=== PATIENT | female | born 1990 | race Caucasian/White ===

== ENCOUNTER 2019-01-18 09:41 | Day surgery (SDC) | payer OTHER, SELFPAY ==
[2019-01-18] VITALS (8 sets, daily range): BP systolic 111–121; BP diastolic 67–78; PULSE 53–89; RESP 11–19; TEMP 36.3–36.7; O2SAT 97–100; BMI 28.9
--- NOTE | 2019-01-18 | PATH_ITS ---
[facility] Accession Number: [id number] . 01 Material submitted: . gallbladder - GALLBLADDER WITH CONTENTS . 02 Diagnosis: Gallbladder with Contents, Cholecystectomy: Cholelithiasis with mild chronic cholecystitis. No evidence of neoplasm. MRV 01/20/2019 1119 Local . 02 Electronically signed: . Carlos Ackerman MD, PhD, Pathologist NPI- [id number] . 01 Gross description: . Received in formalin, labeled gallbladder / contents, is an intact gallbladder (length-6.2 cm, diameter-2.5 cm) with baeza-green smooth shiny serosa and a patent cystic duct. A perforation (0.6 x 0.2 cm) is identified within the fundus. One lymph node (1.5 x 0.5 x 0.4 cm) is identified. The lumen contains green gelatinous bile and multiple yellow friable calculi (3.0 x 1.0 x 0.3 cm in aggregate). The mucosa is green-yellow and rough. The wall is up to 0.1 cm thick. No nodules, masses or lesions are identified. Section code: (A1) cystic duct resection margin and two serial sections from the body; (A2) two longitudinal sections from the fundus; (A3) one bisected lymph node. ([id number]) /MRV 01/19/2019 1223 Local . 02 Pathologist provided ICD-10: K80.60 . 02 CPT . 389986 Performed at: 01 [facility] [address] [facility], [place], [place] [id number] MD Sergio Graham MD Phone: [phone] Performed at: 02 [facility] [place] [id number] [address], [place] [id number] MD Berenice Balderrama MD Phone: [phone]
[2019-01-18] MEDS: LACTATED RINGERS 1,000 ML 100 ML IV (10:36)
--- NOTE | 2019-01-18 11:10 | PM.PREOP ---
Pre-operative Note Interval Note History & Physical reviewed/Exam performed by Physician: Yes Changes to H&P: No
[2019-01-18] MEDS: CEFAZOLIN 2 GM/100 ML FROZ.PIGGY IV (11:43)
--- NOTE | 2019-01-18 12:10 | SUR.OPER ---
Supine on padded OR bed, head on pillow, safety belt at thigh, left arm padded and tucked at side. Right arm secured on padded arm board <90 degrees abduction. Legs uncrossed. Padded footboard in place. Tape over blanket to secure lower legs.
[2019-01-18] MEDS: BUPIVACAINE 0.25% (PF) VIAL 30 ML INJ (12:21)
--- NOTE | 2019-01-18 12:43 | SUR.PHASEI ---
Report given to Rai WIGGINS for further care in PACU, oral airway just now removed
--- NOTE | 2019-01-18 12:51 | SUR.PHASEI ---
Patient reported upper chest and shoulder pain. Dr. Boyle notified, no new orders.
[2019-01-18] MEDS: fentaNYL 100 MCG/2 ML INJ 50 MCG IV (12:54)
[2019-01-18] MEDS: KETOROLAC 30 MG/ML VIAL IV (12:54)
--- NOTE | 2019-01-18 13:04 | SUR.PHASEI ---
Patient reported shoulder pain resolved. Abd pain improved to 2/10.
--- NOTE | 2019-01-18 13:14 | SUR.PHASEI ---
Encouraged po pain medication, patient declined
--- NOTE | 2019-01-18 13:22 | SUR.PHASEI ---
Dr. Boyle notified patient's heart rate 49-60 post op. MD conferring with Dr. Hebert. Waiting for orders.
--- NOTE | 2019-01-18 13:31 | SUR.PHASEI ---
Patient may discharge per Dr. Aviles with HR from 49-60s. Patient denied feeling lightheaded, dizzy or nauseated.
--- NOTE | 2019-01-18 18:17 | PM.OP.1 ---
Operative Date/Time/Diagnoses Date of procedure: 01/18/19 Time of procedure: 18:17 Pre-op diagnosis: Biliary colic Post-op diagnosis: same Procedure & Clinicians Procedure: Laparoscopic cholecystectomy Same procedure as scheduled: Yes Indications: 28-year-old female with biliary colic and ultrasound demonstrating gallstones presents for elective cholecystectomy Surgeon: Jason Boyle Anesthesia Type: General Operative Notes Findings: Clips on cystic duct and cystic artery in good position Specimen(s): other (Gallbladder) Estimated Blood Loss (mL): 10 Procedure in detail: The patient was brought to the operating room placed supine on the table. Bilateral lower extremity compression devices were applied. General anesthesia was induced and they were intubated with an endotracheal tube. They received 3.75 g of Zosyn prior to skin incision. A time-out was performed to ensure the correct patient procedure necessary equipment within the operating room. They were then prepped and draped in the usual sterile fashion. Infraumbilical incision was made the umbilical stalk was grasped and elevated and the fascia was sharply incised. The abdomen was entered atraumatically. A 10 mm trocar was then placed into the abdomen. Pneumoperitoneum was established. The laparoscopic camera was inserted into the abdomen inspection was made that demonstrated no evidence of injury upon entry. We then placed our working ports the 1st 5 mm port high in the epigastrium and then 2 in the right upper quadrant. The gallbladder was grasped and retracted over the liver and grasped laterally by the fundus. The triangle of Calot was exposed. The triangle of calot was then skeletonized using hook electrocautery and demonstrated the cystic duct clearly entering the gallbladder the cystic artery and the liver and in the background. With the critical view of safety established the cystic duct was clipped twice proximally and once distally and then sharply divided and the cystic artery was taken in the same fashion. Next the gallbladder was removed from the liver bed using electro cautery. The liver bed was then inspected for hemostasis and this was achieved. The abdomen was irrigated with sterile saline and inspection was made that showed the clips in good position. The specimen was removed using Endo-Catch. The abdomen was desufflated. The the fascia of the umbilicus was closed with 0 Vicryl in a fryzrw-gl-ksooe fashion. Skin incisions were irrigated and closed with 4-0 Monocryl. The wounds were sealed with Dermabond. Patient emerged from general anesthesia was extubated and transferred to the postoperative care unit missed stable condition. The sponge and instrument count at the end of the operation was correct. Complications: none Post-operative Disposition: same day surgery
== END 2019-01-18 14:01 | disposition home or self-care (01) ==
PROVIDERS: PCP Family Medicine; Visit Provider Surgery
PROC: 0FT44ZZ Resection of Gallbladder, Percutaneous Endoscopic Approach (ICD-10-PCS; CPT 47562; principal; 2019-01-18 11:15)
DX: K80.10 Calculus of gallbladder with chronic cholecystitis without obstruction (principal)
CPT/HCPCS: 47562; J0690; J1100; J1885; J2405; J2704; J3010

== ENCOUNTER → 2023-10-22 12:40 | Outpatient (CLI) | payer OTHER, SELFPAY ==
[2023-10-22 13:18] LABS: Add Manual Diff / Slide Review NO; Basophils Absolute Auto 0 /uL (0-100); Basophils Percent Auto 0.2 % (0-2); Eosinophils Absolute Auto 100 /uL (0-450); Eosinophils Percent Auto 0.4 % (2-4); Hematocrit 39.9 % (36-46); Hemoglobin 13.8 g/dL (12.0-16.0); Lymphocytes Absolute Auto 2600 /uL (1100-4500); Lymphocytes Percent Auto 19.2 % (25-40); Mean Corpuscular HGB Conc 34.5 % (30-36); Mean Corpuscular Hemoglobin 31.5 PG (26-34); Mean Corpuscular Volume 91.3 fL (80-100); Monocytes Absolute Auto 800 /uL (0-900); Monocytes Percent Auto 6.1 % (3-14); Neutrophils Absolute Auto 9900 /uL (1500-7000); Neutrophils Percent Auto 74.1 % (50-75); Platelet Count 240 X10^3/uL (150-400); Red Blood Cell Count 4.37 X10^6/uL (4.0-5.2); Red Cell Distribution Width 12.9 % (11.6-14.8); White Blood Cell Count 13.4 X10^3/uL (4.5-11.0)
[2023-10-22 13:32] LABS: Appearance Urine UA CLEAR; Bilirubin Urine UA NEGATIVE (NEGATIVE); Color Urine UA YELLOW; Glucose Urine UA NEGATIVE (Negative); Ketones Urine UA NEGATIVE (NEGATIVE); Leukocyte Esterase Urine UA NEGATIVE (NEGATIVE); Nitrite Urine UA NEGATIVE (Negative); Occult Blood Urine UA NEGATIVE (Negative); Protein Urine UA NEGATIVE (Negative); Urobilinogen Urine UA 0.2 E.U./dL (0.2)
[2023-10-23 01:55] LABS: HIV 1 & 2 Ab/Ag 4th Gen Combo NEGATIVE (NEGATIVE); Hep C Virus Ab w/Reflex Quant NEGATIVE s/c (NEGATIVE); Hepatitis B Surface Antigen NEGATIVE s/c (NEGATIVE); Rubella Antibody IgG 8.6 IU/mL (>15)
[2023-10-23 06:05] LABS: RPR Screen Non Reactive (Non Reactive)
[2023-10-23 09:12] LABS: Varicella IgG Antibody 2751 index (Immune >165)
== END ==
PROVIDERS: Referring Provider Student in an Organized Health Care Education/Training Program; Visit Provider Student in an Organized Health Care Education/Training Program
DX: Z34.80 Encounter for supervision of other normal pregnancy, unspecified trimester (principal)
CPT/HCPCS: 36415; 80055; 81003; 86787; 86803; 86850; 86900; 86901; 87086; 87389

== ENCOUNTER → 2023-12-17 12:00 | Outpatient (CLI) | payer OTHER, SELFPAY ==
[2023-12-19 21:36] LABS: AFP, Serum 29.2 ng/mL (.); Calc Gestational Age Ultrasound (.); Estriol, Free 1.17 ng/mL (.); Inhibin A, Dimeric 173.12 pg/mL (.); Inhibin A, MoM 1.33 (.); Maternal Ethnicity Caucasian (.); Maternal Weight 217 lbs (.); Number of Fetuses No (.); OSBR Risk 1 IN 10000 (.); Results Report (.); Test Results *Screen Negative* (.); hCG, Serum 27067 mIU/mL (.)
== END ==
PROVIDERS: Referring Provider Student in an Organized Health Care Education/Training Program; Visit Provider Student in an Organized Health Care Education/Training Program
DX: Z13.79 Encounter for other screening for genetic and chromosomal anomalies (principal); Z3A.17 17 weeks gestation of pregnancy
CPT/HCPCS: 36415; 82105; 82677; 84702; 86336

== ENCOUNTER → 2024-01-12 11:51 | Outpatient (CLI) | payer OTHER, SELFPAY ==
--- NOTE | 2024-01-12 11:52 | DI.US.S_ITS ---
PROCEDURE: US OB >= 14 WEEKS FETUS INDICATIONS: anatomy screen OUTSIDE/PRIOR DATING DATA: Last menstrual period (LMP): 08/17/2023. LMP-based estimated date of delivery (WES): 05/23/2024. First dating scan (date and location): 01/12/2024. The calculations are made using the clinical WES of 05/23/2024. TECHNIQUE: Real-time scanning was performed of the fetus, with image documentation and biometric measurements. Endovaginal scanning: Not performed COMPARISON: None. FINDINGS: General: A single living intrauterine gestation is present. Presentation: Transverse head maternal left. Placenta: Placental position is posterior, without previa. Amniotic fluid index: 15.9 cm, normal range is 5-24 cm. Single deepest vertical pocket is 5.5 cm. heart rate: 162 beats per minute. Maternal cervical canal: 5.5 cm long. Normal lower limit is 2.5 cm. biometrics: Biparietal diameter: 4.7 cm, 20 weeks 1 day Head circumference: 18.3 cm, 20 weeks 5 days Abdominal circumference: 15.2 cm, 20 weeks 3 days Femur length: 3.5 cm, 20 weeks 6 days Clinically estimated gestational age: 21 weeks 1 day Composite gestational age from present scan: 20 weeks 4 days Estimated weight and percentile: 366 g, 20th percentile Anatomic survey: Neuro: Ventricles are non-dilated at less than 10 mm. Cisterna magna is normal at 3-11 mm. Cerebellum is normal in size and morphology. Nuchal skin fold: Normal at less than 6 mm between 14-21 weeks gestational age. Face: Nose and lips, facial profile are normal. Spine: No evidence for spina bifida. Heart: 4-chambered heart is present, with normal ventricular outflow tracts. Diaphragm: Diaphragm is intact. Stomach: Left-sided stomach is present. Kidneys: No hydronephrosis. Normal is less than 5 mm in 2nd trimester, less than 7 mm in 3rd trimester. Cord: 3-vessel cord has orthotopic insertion. Bladder: Normal in size. Extremities: All 4 extremities identified. IMPRESSION: 1. Benavidez living intrauterine at 20 weeks 4 days based on today's ultrasound. Fetus is in the 20th percentile for weight. 2. Normal placenta and amniotic fluid. 3. Normal and complete anatomic survey. We strive to produce accurate, complete, and clear reports of imaging services. To assist us in improving patient care, this report was composed using standard report templates and voice recognition software. Therefore, it may contain abnormal punctuation, insertions and/or omissions. Occasional wrong-word or sound-alike substitutions may occur. Though we review the report and make efforts to correct it, we do recommend that the report be read carefully in proper context to recognize any text inaccuracies. Dictated by: John Yun M.D. on 01/12/2024 at 21:05 Approved by: John Yun M.D. on 01/12/2024 at 21:14
== END ==
PROVIDERS: Referring Provider Student in an Organized Health Care Education/Training Program; Visit Provider Student in an Organized Health Care Education/Training Program
DX: Z34.82 Encounter for supervision of other normal pregnancy, second trimester (principal); Z3A.20 20 weeks gestation of pregnancy
CPT/HCPCS: 76811

== ENCOUNTER → 2024-03-10 11:58 | Outpatient (CLI) | payer OTHER, SELFPAY ==
[2024-03-10 13:31] LABS: Hematocrit 37.6 % (36-46)
[2024-03-10 13:50] LABS: GTT (PREG) 1 Hour PP 50gm Dose 136 mg/dL (76-139)
== END ==
PROVIDERS: Referring Provider Student in an Organized Health Care Education/Training Program; Visit Provider Student in an Organized Health Care Education/Training Program
DX: Z34.92 Encounter for supervision of normal pregnancy, unspecified, second trimester (principal); Z3A.24 24 weeks gestation of pregnancy
CPT/HCPCS: 82950; 85014; 85018

== ENCOUNTER → 2024-03-15 09:51 | Outpatient (CLI) | payer OTHER, SELFPAY ==
[2024-03-15 10:59] LABS: Glucose Fasting Gestational 85 mg/dL (76-95)
[2024-03-15 11:38] LABS: Glucose 1 Hour Gest 187 mg/dL (76-180)
[2024-03-15 13:09] LABS: Glucose Tol Interp,Gestational INTERPRETATION
[2024-03-15 13:22] LABS: Glucose 2 Hour Gest 142 mg/dL (76-155)
[2024-03-15 14:07] LABS: Glucose 3 Hour Gest 65 mg/dL (76-140)
== END ==
PROVIDERS: Referring Provider Student in an Organized Health Care Education/Training Program; Visit Provider Student in an Organized Health Care Education/Training Program
DX: O99.810 Abnormal glucose complicating pregnancy (principal); Z3A.29 29 weeks gestation of pregnancy
CPT/HCPCS: 36415; 82951; 82952

== ENCOUNTER → 2024-04-19 13:30 | Outpatient (CLI) | payer OTHER, SELFPAY ==
--- NOTE | 2024-04-19 13:31 | DI.US.S_ITS ---
PROCEDURE: US OB LIMITED INDICATIONS: Growth scan OUTSIDE/PRIOR DATING DATA: Last menstrual period (LMP): 08/17/2023. LMP-based estimated date of delivery (WES): 05/23/2024. The calculations are made using the clinical WES of 05/23/2024. TECHNIQUE: Real-time scanning was performed of the fetus, with image documentation and biometry. Endovaginal scanning: Not performed COMPARISON: [facility], OB >= 14 WEEKS FETUS, 01/12/2024, 12:26. FINDINGS: A single living intrauterine gestation is present. Presentation: Vertex. Placenta: Placental position is posterior, without previa. Amniotic fluid index: 22.1 cm, normal range is 5-24 cm. Single deepest vertical pocket is 9.3 cm. heart rate: 135 beats per minute. Maternal cervical canal: 5 cm long. Normal lower limit is 2.5 cm. No funneling. Biometric measurements: BPD: 8.7 cm, 35 weeks 1 day HC: 31.7 cm, 34 weeks 5 days AC: 32.7 cm, 36 weeks 4 days FL: 6.9 cm, 35 weeks 1 day Clinically estimated gestational age: 35 weeks 1 day Estimated gestational age from initial scan: 35 weeks 3 days Estimated weight: 2785 g, 68th percentile. IMPRESSION: 1. Benavidez living intrauterine at 35 weeks 1 day based on today's ultrasound. This is concordant with prior dating. Fetus is in the 68th percentile for weight. Vertex position. 2. Normal placenta and amniotic fluid. Dictated by: John Yun M.D. on 04/20/2024 at 13:11 Approved by: John Yun M.D. on 04/20/2024 at 14:09
== END ==
PROVIDERS: Referring Provider Student in an Organized Health Care Education/Training Program; Visit Provider Student in an Organized Health Care Education/Training Program
DX: Z36.88 Encounter for antenatal screening for fetal macrosomia (principal); Z3A.35 35 weeks gestation of pregnancy
CPT/HCPCS: 76815

== ENCOUNTER → 2024-04-29 12:41 | Outpatient (CLI) | payer OTHER, SELFPAY ==
[2024-04-30 12:36] LABS: Strep Grp B PCR NEG for Grp B Strep
== END ==
PROVIDERS: Visit Provider Student in an Organized Health Care Education/Training Program
DX: Z34.93 Encounter for supervision of normal pregnancy, unspecified, third trimester (principal); Z3A.36 36 weeks gestation of pregnancy
CPT/HCPCS: 87653

== ENCOUNTER 2024-05-17 11:13 | Inpatient (IN) | payer OTHER, SELFPAY ==
[2024-05-17 11:37] VITALS: BP 129/71
[2024-05-17 12:27] LABS: Add Manual Diff / Slide Review NO; Basophils Absolute Auto 0 /uL (0-100); Basophils Percent Auto 0.2 % (0-2); Eosinophils Absolute Auto 100 /uL (0-450); Eosinophils Percent Auto 0.5 % (2-4); Hematocrit 38.3 % (36-46); Lymphocytes Absolute Auto 3200 /uL (1100-4500); Lymphocytes Percent Auto 24.2 % (25-40); Mean Corpuscular HGB Conc 33.9 % (30-36); Mean Corpuscular Hemoglobin 31.6 PG (26-34); Mean Corpuscular Volume 93.1 fL (80-100); Monocytes Absolute Auto 1200 /uL (0-900); Monocytes Percent Auto 8.7 % (3-14); Neutrophils Absolute Auto 8800 /uL (1500-7000); Neutrophils Percent Auto 66.4 % (50-75); Platelet Count 225 X10^3/uL (150-400); Red Blood Cell Count 4.11 X10^6/uL (4.0-5.2); Red Cell Distribution Width 14.3 % (11.6-14.8); White Blood Cell Count 13.3 X10^3/uL (4.5-11.0)
--- NOTE | 2024-05-17 12:27 | P.HPOB_ITS ---
OB HPI Date/Time Date of admission: 05/17/24 Date Patient Seen: 05/17/24 History of Present Condition Chief complaint: INDUCTION WES Calculator 2 Estimated Delivery Date Method Current WG Current Estimate 05/23/24 LMP (Certain) 39w 1d : 3 Para: 2 Narrative: Patient is a 34 yo at 39w1d here for eIOL. uncomplicated. Hx of precipitous delivery (labor 4 hrs). care: good care Dating criteria OB: LMP confirmed by 1st trimester US Ultrasounds: normal 1st trimester US and normal mid trimester US Obstetrical complications: none Medical complications OB: none Indications Indication for induction OB: maternal distance and history of rapid labor Preadmission Labs Last OB Lab Results: 2 Blood Type O Positive 10/22/23 12:44 Antibody Screen Negative 10/22/23 12:44 Hct 38.3 % (36-46) 05/17/24 11:45 Hgb 13.0 g/dL (12.0-16.0) 05/17/24 11:45 Hep Bs Antigen Negative s/c (NEGATIVE) 10/22/23 12:44 Hepatitis C Antibody Negative s/c (NEGATIVE) 10/22/23 12:44 Rubella Antibody 8.6 IU/mL (>15) L 10/22/23 12:44 VZV IgG Antibody 2751 index (Immune >165) 10/22/23 12:44 Glucose 1 Hr 50 gm 136 mg/dL (76-139) 03/10/24 12:15 Group B Strep (PCR) Neg for grp b strep 04/29/24 12:45 Glucose Tolerance Testin hr and 3 hr -: PAP smear: Normal Genetic Screens: Quad screen: Normal Prior (ies) Past Pregnancies Del. Date GA/Weeks Labor Lgth Wt Sex Route Outcome Anesthesia Place Delv Breastfeed Preg Comp Name 06/10/16 40.3 11 7 lb 14 oz Male vaginal live - full term e pidural [facility] 14 months none [place] 11/04/18 41 4 6 lb 14 oz Female vaginal live - full term n one [facility] 11 months other [place] Delivery Date: 11/04/18 Last Updated by: Rema Foreman, RN precip delivery, cholecystitis, needed gall bladder out Evaluation Evaluation Baseline heart rate: 145 Variability: Average (6-10) monitor accelerations: Present Monitor Decelerations: Absent Category of Tracing: Reactive Dilation (cm): 1 Effacement (%): 50 Dilation: 1-2 cm Effacement: 40-50% station: -3 Position of cervix: posterior Consistency: soft Mccollum score: 4 PFSH Medical History (Updated 10/08/23 @ 08:03 by Rema Foreman RN) Biliary colic Surgical History (Updated 10/08/23 @ 08:03 by Rema Foreman RN) History of cholecystectomy (~2018) [place] teeth extracted (~2006) Family History (Updated 10/08/23 @ 09:21 by Rema Foreman RN) Mother HPV (human papilloma virus) infection Skin cancer Father Glaucoma Grandmother Breast cancer Pancreatic cancer Nasopharyngeal cancer Brother Gall stones Aunt Stroke Grandfather Heavy smoker History of substance abuse Liver cancer Lung cancer Brain cancer Grandfather Heart attack S/P CABG x 3 Grandmother Skin cancer TIA (transient ischemic attack) Cancer Former smoker Social History marital status: number of children: 2 household members: spouse and children lives independently: Yes caregiver/support person: Yes housing: house pets and animals: Yes (dog) education level: college (some college) occupational status: unemployed current occupational exposures/hazards: No special otilio needs: No travel history: over 6 months ago seatbelt use: always water heater temp set < 120 deg: Yes working smoke detector in home: Yes fire extinguisher in home: Yes carbon monox detector in home: Yes firearms in home: Yes firearms unloaded and locked: Yes do you feel safe at home: Yes Smoking Status: Never smoker second hand exposure: Yes ( smokes, but not around pt or kids) alcohol intake: former (~1-2/week when not ) substance use type: does not use during the past year weight has: remained stable well-balanced diet: daily or most days daily servings fruits/ve-4 caffeine: Yes (single cup coffee in AM) Type(s) of exercise: walking and other (active on property doing large projects) Meds Home Medications and Allergies Home Medications Medication Instructions Recorded Confirmed Type prenat.vits,zo,srd-mivn-kxysy 1 tab PO DAILY 01/05/19 05/17/24 History Breast Pump #1 ea 04/08/24 05/17/24 Rx Allergies Allergy/AdvReac Type Severity Reaction Status Date / Time No Known Drug Allergies Allergy Verified 05/17/24 10:39 Objective Labs 05/17/24 11:45 05/17/24 11:45 Assessment and Plan Assessment and Plan Assessment and Plan narrative: 34 yo at 39w1d here for eIOL. Hx of precipitous delivery. SVE /-3. GBS neg. -will start with vag miso 25 mcg -anticipate vaginal delivery Time-Based Coding :: 30 minutes spent with patient and on the chart (including review of chart, obtaining history, exam, reviewing outside data, placing orders, documenting exam and treatment plan, and counseling patient) on 05/17/24.
[2024-05-17 12:32] LABS: Alanine Aminotransferase 22 IU/L (<35); Albumin 3.9 g/dL (3.5-5.0); Albumin Globulin Ratio 1.2 (1.0-2.8); Alkaline Phosphatase 116 U/L (38-126); Aspartate Aminotransferase 41 IU/L (14-36); BUN Creatinine Ratio 17.2 (6-22); Bilirubin Total 0.4 mg/dL (0.2-1.3); Blood Urea Nitrogen 10 mg/dL (7-17); Calcium 9.5 mg/dL (8.4-10.2); Carbon Dioxide 18 mmol/L (22-32); Chloride 107 mmol/L (98-107); Estimated Glomerular Filt Rate > 60 mL/min (>60); Globulin 3.3 g/dL (1.7-4.1); Glucose 80 mg/dL (70-100); HEMOLYSIS < 15 (0-50); Potassium 4.4 mmol/L (3.4-5.1); Sodium 135 mmol/L (137-145); Total Protein 7.2 g/dL (6.3-8.2)
[2024-05-17] MEDS: miSOPROStoL 25 MCG TABLET VAG (12:52)
--- NOTE | 2024-05-17 16:52 | PM.OBPNLAB ---
Date/Time Date Patient Seen: 05/17/24 Time Patient Seen: 04:50 Pain Control Pain control: tolerating well Pelvic Exam Dilation (cm): 2 Effacement (%): 70 station: -2 Amniotic membrane status: Bulging Contractions Contractions on admission: none Monitor mode: External Contraction frequency (min): 2 Contraction pattern: Regular Contraction phase: Contraction Contraction intensity: Mild Status status: Category l Heart Rate Baseline: 145 Monitor Accelerations: Present Monitor Decelerations: Absent Monitor Variability: Moderate Assessment and Plan Assessment: active labor and induction ongoing Plan: continuous present management and begin patient augmentation Comments: 34 yo at 39w1d here for eIOL. GBS neg. /-2 -s/p one dose vaginal misoprostol -AROM with exam, clear fluid -begin pitocin if no increase of intensity of contractions -anticipate vaginal delivery
[2024-05-17] MEDS: ONDANSETRON 4 MG/2 ML INJ IV (21:28)
[2024-05-17] MEDS: LACTATED RINGERS 1,000 ML 100 ML IV (22:19)
--- NOTE | 2024-05-17 22:57 | PM.OBPRVD ---
Events: Labor Induction Labor & Delivery Delivery date: 05/17/24 Delivery Time: 22:42 Intrapartal Events: None Cervical ripening method: per misoprostal protocol Induction method: AROM Delivery monitor: none Route of delivery: L&D Laceration Description: None Estimated blood loss (mL): 200 Anesthesia Type: Other (nitrous oxide) Narrative: Patient is a 34 yo G3 now P3 induced electively. She was given 1 dose of vag miso and AROM was performed 4 hours later. Patient was checked and found to be 6cm. Provider was called. Patient delivered precipitously within 2 minutes of 6cm check. Provider arrived to the room within first minute of life. Baby with good tone, breathing spontaneously, poor color. Provider gowned and delivered placenta without difficulty. No lacerations noted. Fundus firm with external massage, bleeding minimal. Plan for aftercare: Routine care
[2024-05-17] MEDS: OXYTOCIN PREMIX 30 UNIT/500 ML PLAST..BAG 200 UNIT IV (23:14)
[2024-05-18] MEDS: ACETAMINOPHEN 325 MG TABLET 650 MG PO ×3 (00:01→13:06)
[2024-05-18] MEDS: IBUPROFEN 600 MG TABLET PO ×3 (00:01→13:07)
--- NOTE | 2024-05-18 10:49 | P.DS_ITS ---
Discharge Providers Provider Date of admission: 05/17/24 11:13 Discharge Date: 05/18/24 Primary care physician: Juanito LUCAS Provider Consults: 05/17/24 12:15 Consult to Anesthesiology Urgent Comment: Consulting Provider: Anesthesiologist Reason for consultation: Epidural 05/18/24 22:55 Consult to Motorcycle Rep[employer] Shop Supervisor Routine Comment: Discharge provider: Rosetta Krueger MD Summary Hospital Course Date Patient Seen: 05/18/24 Time Patient Seen: 07:15 Diagnoses: Term Hospital Course: Patient is a 34 yo G3 now P3 who was electively induced at 39w1d. uncomplicated. GBS negative. Delivery uncomplicated. Doing well . Minimal bleeding. pain controlled. well. Ambulating without difficulty. Peripartum Data Delivery Method: Natural Vaginal Laceration Description: None complications: none Status at Discharge Cognitive/behavioral status at discharge: oriented Functional status at discharge: independent ambulation Overall status at discharge: patient is back to baseline Time Spent with Patient Time attestation: Total time spent providing and/or coordinating discharge services: 35 minutes Time spent: Greater than 30 minutes Objective Labs 05/17/24 11:45 05/17/24 11:45 Labs: Laboratory Results - last 24 hr 05/17/24 11:45 WBC 13.3 H RBC 4.11 Hgb 13.0 Hct 38.3 MCV 93.1 MCH 31.6 MCHC 33.9 RDW 14.3 Plt Count 225 Neut % (Auto) 66.4 Lymph % (Auto) 24.2 L [place] % (Auto) 8.7 Eos % (Auto) 0.5 L Baso % (Auto) 0.2 Neut # (Auto) 8800 H Lymph # (Auto) 3200 [place] # (Auto) 1200 H Eos # (Auto) 100 Baso # (Auto) 0 Sodium 135 L Potassium 4.4 Chloride 107 Carbon Dioxide 18 L BUN 10 Creatinine 0.58 Estimated GFR > 60 BUN/Creatinine Ratio 17.2 Glucose 80 Calcium 9.5 Total Bilirubin 0.4 AST 41 H ALT 22 Alkaline Phosphatase 116 Total Protein 7.2 Albumin 3.9 Globulin 3.3 Albumin/Globulin Ratio 1.2 Blood Type O Positive Antibody Screen Negative Exam Narrative Exam Narrative: NAD, breathing easily Discharge Plan Discharge Plan Patient Disposition: Home Discharge orders & Medications Prescriptions: New acetaminophen 325 mg Tablet 650 mg PO Q6HR PRN (Reason: Pain, Mild (1-3)) 7 Days Qty: 60 0RF docusate sodium 100 mg Capsule 100 mg PO BID 7 Days Qty: 14 0RF ibuprofen 600 mg Tablet 600 mg PO Q6HR PRN (Reason: Pain, Mild (1-3)) 7 Days Qty: 30 0RF Continued M- Plus 27 mg iron- 1 mg tablet 1 tab PO DAILY No Action (DME) Breast Pump See Rx Instructions .Route .MEDSUPPLY Qty: 1 0RF Rx Instructions: As directed Follow up/Referrals: ProviderJuanito [Primary Care Provider] - Visit Report/Discharge Packet Stand Alone Forms: Patient Portal/API, Stroke Signs & Symptoms Discharge Data Primary Care Provider: Juanito Miles
[2024-05-18] MEDS: LANOLIN OINT 7 GM 1 APPLIC TOP (13:07)
[2024-05-18] MEDS: WITCH HAZEL/GLYCERIN PADS 1 EACH TOP (13:07)
[2024-05-18] MEDS: DERMOPLAST SPRAY 20% 60 ML 1 SPRAY TOP (13:08)
[2024-05-18 16:37] VITALS: BP 129/71
[2024-05-18 16:39] VITALS: BP 115/64; PULSE 75; RESP 13; TEMP 36.2
[2024-05-18] MEDS: MEASLES,MUMPS,RUBELLA VACC/PF 0.5 ML VIAL SUBCUT (17:46)
== END 2024-05-18 18:00 | disposition home or self-care (01) | DRG 807 ==
PROVIDERS: Admitting Provider Student in an Organized Health Care Education/Training Program; Referring Provider Student in an Organized Health Care Education/Training Program; Visit Provider Student in an Organized Health Care Education/Training Program
DX: O80 Encounter for full-term uncomplicated delivery (principal); Z37.0 Single live birth; Z3A.39 39 weeks gestation of pregnancy
CPT/HCPCS: 36415; 59050; 59200; 80053; 85025; 86850; 86900; 86901; G0379; J2405; J2590